=== PATIENT | female | born 1990 | race Asian ===

== ENCOUNTER 2016-11-07 01:42 | Inpatient (IN) | payer SELFPAY ==
[~2016-11-07] VITALS: Ht 160 cm; Wt 63.5 kg
[2016-11-07 02:00] VITALS: BP 138/91
[2016-11-07] MEDS ORDERED: TERBUTALINE 1 MG/ML VIAL SUBQ SCH (02:15)
[2016-11-07] MEDS ORDERED: BETAMETH ACET/BETAMETH NA PH 30 MG/5 ML VIAL IM ONE (02:22)
[2016-11-07] MEDS ORDERED: TERBUTALINE 1 MG/ML VIAL SUBQ ONE (02:22)
[2016-11-07] MEDS ORDERED: OXYTOCIN 20 UNITS/LR PREMIX 1,000 ML IV SCH (02:28)
[2016-11-07] MEDS ORDERED: LACTATED RINGERS 1,000 ML IV SCH (02:28)
[2016-11-07] MEDS ORDERED: PROMETHAZINE 25 MG/ML VIAL IVP PRN (02:30)
[2016-11-07] MEDS ORDERED: METHYLERGONOVINE 0.2 MG/ML AMP IM SCH (02:30)
[2016-11-07] MEDS ORDERED: NALBUPHINE 10 MG/ML AMP IVP PRN (02:30)
[2016-11-07] MEDS ORDERED: OXYTOCIN 10 UNITS/ML VIAL IM SCH (02:30)
[2016-11-07] MEDS ORDERED: CARBOPROST 250 MCG/ML AMP IM PRN (02:30)
[2016-11-07] MEDS ORDERED: IBUPROFEN 800 MG TAB PO PRN (02:30)
[2016-11-07] MEDS ORDERED: PREN-380 PO (02:38)
[2016-11-07] MEDS ORDERED: AMPICILLIN 2,000 MG in NACL 0.9% 100 ML IV SCH (02:50)
[2016-11-07] MEDS ORDERED: PROMETHAZINE 25 MG/ML VIAL ONE (03:08)
[2016-11-07] MEDS ORDERED: NALBUPHINE HYDROCHLORIDE 10 MG/ML VIAL ONE (03:08)
[2016-11-07 03:16] LABS: HEMATOCRIT 37.7 % (36-48); HEMOGLOBIN 12.6 g/dL (12.0-16.0); MEAN CORPUSCULAR HEMOGLOBIN 31 pg (27-31); MEAN CORPUSCULAR HGB CONC 34 g/dL (33-37); MEAN CORPUSCULAR VOLUME 91 fL (80-94); PLATELET COUNT (AUTO) 157 K/uL (140-450); RED BLOOD CELL COUNT(AUTO) 4.14 MIL/uL (4.20-5.40); RED CELL DISTRIBUTION WIDTH 12.5 % (11.6-13.7)
[2016-11-07] MEDS ORDERED: AMPICILLIN 2,000 MG VIAL ONE (03:26)
[2016-11-07 03:44] LABS: ALBUMIN 2.6 g/dL (3.4-5.0); CALCIUM 8.7 mg/dL (8.5-10.1); CARBON DIOXIDE 18.3 mmol/L (21-32); CREATININE 0.8 mg/dL (0.6-1.3); POTASSIUM 3.3 mmol/L (3.5-5.1); TOTAL BILIRUBIN 0.2 mg/dL (0.0-1.0); TOTAL PROTEIN, SERUM 7.1 g/dL (6.4-8.2)
[2016-11-07] MEDS ORDERED: AMPICILLIN 1,000 MG in NACL 0.9% 50 ML IV SCH (04:00)
[2016-11-07 04:18] LABS: APPEARANCE,URINE CLEAR (CLEAR); BILIRUBIN,URINE NEGATIVE (NEGATIVE); BLOOD, URINE NEGATIVE (NEGATIVE); COLOR,URINE YELLOW (YELLOW); LEUKOCYTE ESTERASE ,URINE NEGATIVE (NEGATIVE); NITRITE, URINE NEGATIVE (NEGATIVE); PH,URINE 6.5 (5.0-9.0); PROTEIN,URINE 1+ (NEGATIVE); UGLUCOSE NEGATIVE (NEGATIVE); UROBILINOGEN,URINE 0.2 EU/dL (0.2 - 1)
[2016-11-07 04:21] LABS: WHITE BLOOD COUNT (AUTO) 16.7 K/uL (4.8-10.8)
[2016-11-07 04:22] LABS: BAND % (MANUAL) 30 % (0-8); LYMPHOCYTES % (MANUAL) 12 % (20-46); NEUTROPHILS % (MANUAL) 58 (43-65)
[2016-11-07 05:00] LABS: BACTERIA,URINE FEW /HPF (None Seen); RBC,URINE 0-5 (RARE) /HPF (0-5); SQUAMOUS EPITHELIAL CELL,UR 0-3 (FEW) /LPF (0-3 (FEW)); WBC,URINE 0-5 (RARE) /HPF (0-5)
[2016-11-07] MEDS ORDERED: ROPIVACAINE 0.2%/NS PREMIX 250 ML EPI ONE (05:11)
[2016-11-07] MEDS ORDERED: OXYTOCIN 10 UNITS/ML VIAL ONE (05:40)
[2016-11-07] MEDS ORDERED: OXYTOCIN 20 UNITS/LR PREMIX 1,000 ML IV ONE (05:40)
[2016-11-07] MEDS: BETAMETH ACET/BETAMETH NA PH 30 MG/5 ML VIAL IM SCH ×2 (05:47→08:04)
[2016-11-07] MEDS ORDERED: SODIUM PHOSPHATE 118 ML ENEM RC PRN (08:25)
[2016-11-07] MEDS ORDERED: MEASLES, MUMPS, AND RUBELLA 1 VIAL SQVAC PRN (08:25)
[2016-11-07] MEDS ORDERED: HYDROcodone/APAP 5/325 MG 1 TAB TAB PO PRN ×2 (08:25)
[2016-11-07] MEDS ORDERED: oxyCODONE/APAP 5/325 MG 1 TAB TAB PO PRN (08:25)
[2016-11-07] MEDS ORDERED: METHYLERGONOVINE 0.2 MG TAB PO PRN (08:25)
[2016-11-07] MEDS ORDERED: BENZOCAINE/MENTHOL 20%-0.5% 60 GM CAN TP PRN (08:25)
[2016-11-07] MEDS ORDERED: TEMAZEPAM 15 MG CAP PO PRN (08:25)
[2016-11-07] MEDS ORDERED: WITCH HAZEL 40 PAD PACKAGE TP PRN (08:25)
[2016-11-07] MEDS ORDERED: BISACODYL 10 MG SUPP RC PRN (08:25)
[2016-11-07] MEDS ORDERED: CALCIUM POLYCARBOPHIL 625 MG TAB PO SCH (09:00)
--- NOTE | 2016-11-07 10:26 | NUR ---
PATIENT HAS BEEN SCREENED AND CATEGORIZED LOW NUTRITION RISK. PATIENT WILL BE SEEN WITHIN 7 DAYS OF ADMISSION. 11/13/[address]
[2016-11-07] MEDS ORDERED: DOCUSATE SOD/SENNA 50/8.6 MG 1 TAB PO SCH (21:00)
[2016-11-07] MEDS ORDERED: BISACODYL 5 MG TABEC PO SCH (21:00)
[2016-11-07] MEDS ORDERED: SENNA 8.6 MG TAB PO SCH (21:00)
[2016-11-08 06:30] LABS: HEMATOCRIT 32.6 % (36-48); HEMOGLOBIN 10.9 g/dL (12.0-16.0)
[2016-11-08 09:17] LABS: HEPATITIS B SURFACE ANTIGEN Negative (Negative)
[2016-11-08] MEDS ORDERED: IBUP-2213 PO (10:07)
[2016-11-08] MEDS ORDERED: DOCUSATE SOD/SENNA 50/8.6 MG 1 TAB PO SCH (21:00)
[2016-11-10 07:20] LABS: RUBELLA IGM ANTIBODY <20.0 AU/mL (0.0-19.9)
== END 2016-11-08 17:45 | disposition home or self-care (01) | DRG 774 ==
LOC: EDBD 01:42 → MLD 01:42 → MFCC 10:00
PROVIDERS: ADMIT Obstetrics & Gynecology; ATTEND Obstetrics & Gynecology
PROC: 10E0XZZ Delivery of Products of Conception, External Approach (ICD-10-PCS; principal; 2016-11-07)
PROC: 0KQM0ZZ Repair Perineum Muscle, Open Approach (ICD-10-PCS; 2016-11-07)
PROC: 3E0S3CZ (ICD-10-PCS; 2016-11-07)
PROC: 00HU33Z Insertion of Infusion Device into Spinal Canal, Percutaneous Approach (ICD-10-PCS; 2016-11-07)
DX: O60.14X0 Preterm labor third trimester with preterm delivery third trimester, not applicable or unspecified (principal); O45.93 Premature separation of placenta, unspecified, third trimester; O42.913 Preterm premature rupture of membranes, unspecified as to length of time between rupture and onset of labor, third trimester; O69.81X0 Labor and delivery complicated by cord around neck, without compression, not applicable or unspecified; O70.1 Second degree perineal laceration during delivery; Z3A.34 34 weeks gestation of pregnancy; Z37.0 Single live birth; Z28.21 Immunization not carried out because of patient refusal
CPT/HCPCS: 36415; 51702; 59409; 76805; 80053; 81001; 85018; 85025; 86592; 86762; 86886; 86900; 86901; 87340; 87653-90; J0290; J0702; J2300; J2550; J2590; J2795; J3105; Q0092